=== PATIENT | female | born 1950 | race Caucasian/White ===

== ENCOUNTER 2020-12-09 18:08 | Observation (INO) | payer OTHER, MEDICARE, MEDICAID ==
[2020-12-09] MEDS ORDERED: LORazepam 0.5 MG Tab PO ONE (19:17)
[2020-12-09] MEDS ORDERED: Sodium Chloride 0.9% 10 ML Syringe FLUSH PRN (19:28)
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
[2020-12-09] MEDS ORDERED: LORazepam 2 MG/ML SDV IVPUSH ONE (20:19)
[2020-12-09] MEDS ORDERED: Lactated Ringers 1,000 ML IV ONE (22:16)
[2020-12-09] MEDS ORDERED: Iopamidol 612 MG/ML 150 ML Bottle IVPUSH ONE (22:48)
[2020-12-09] MEDS ORDERED: Sodium Chloride 0.9% 100 ML IV SCH (23:00)
[2020-12-09] MEDS ORDERED: Sodium Chloride 0.9% 10 ML Syringe FLUSH SCH (23:00)
[2020-12-09 23:01] LABS: CORONAVIRUS COVID-19 NAA NEGATIVE (NEGATIVE)
[2020-12-09] MEDS ORDERED: Ibuprofen 800 MG Tab PO ONE (23:01)
[2020-12-10] MEDS ORDERED: oxyCODONE 5 MG Tab PO PRN (00:16)
[2020-12-10] MEDS ORDERED: HYDROmorphone 1 MG/ML Syringe IVPUSH PRN (00:17)
[2020-12-10] MEDS ORDERED: Lactated Ringers 1,000 ML IV SCH (00:30)
[2020-12-10] MEDS: Ibuprofen 800 MG Tab PO SCH ×3 (04:04→16:37)
--- NOTE | 2020-12-10 08:23 | CT ---
CT cervical spine Technique: Multiple axial sections were obtained through the cervical spine from about C1 inferiorly to the top of T4. Reconstructed coronal and sagittal images were then obtained. Findings: Slight spondylolisthesis is noted at C3-4 by about 3 mm. Minimal spondylolisthesis is also noted at C4-5 which is less severe. Minimal spondylolisthesis is noted at C7-T1. Spondylolisthesis is due to degenerative apophyseal change which is noted throughout the cervical and upper thoracic spine. There is disc space narrowing being seen which is mild at C3-4 and C4-5. Disc space narrowing is moderate at C5-6 and more severe at C6-7. Mild disc space narrowing is seen within the thoracic spine. Degenerative change is noted between the dens and anterior arch of C1. Diffuse emphysematous changes are seen within both visualized lung apices. No acute fracture or acute subluxation is seen. Scoliosis is noted within the spine. Impression: 1. Diffuse degenerative change as noted above. 2. No definite acute abnormality is appreciated on CT study of the cervical spine. Diagnostic code #2 I agree with preliminary report from [facility], finalized on 12/09/20, 11:14 PM CDT, code 1
--- NOTE | 2020-12-10 08:30 | CT ---
Head CT Technique: Multiple axial sections through the brain were obtained. Intravenous contrast was not utilized. Reconstructed coronal and sagittal images were obtained. Comparison: No prior intracranial imaging is available. Findings: Ventricles along with basal cisterns and sulci with convexities appear within normal limits for the patient's age. No abnormal parenchymal densities are seen. No evidence of intracranial hemorrhage is seen. No midline shift or mass-effect is seen. Bone window settings were reviewed. Visualized mastoid sinuses and paranasal sinuses show nothing acute. No acute calvarial abnormality is appreciated. Impression: 1. Nothing acute is appreciated on noncontrast head CT study. Diagnostic code #1 I agree with preliminary report from [facility], finalized on 12/09/20, 11:01 PM CDT, code 1
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
== END 2020-12-10 16:54 | disposition home or self-care (01) ==
LOC: JD.ED 18:08 → JD.MS 23:05
PROVIDERS: ADMIT Surgery; ATTEND Surgery
DX: S22.41XA Multiple fractures of ribs, right side, initial encounter for closed fracture (principal); S30.1XXA Contusion of abdominal wall, initial encounter; F17.210 Nicotine dependence, cigarettes, uncomplicated; Z88.0 Allergy status to penicillin; Z79.899 Other long term (current) drug therapy; V47.5XXA Car driver injured in collision with fixed or stationary object in traffic accident, initial encounter; Z20.822 Contact with and (suspected) exposure to COVID-19
CPT/HCPCS: 0240U; 36415; 70450; 70450-26; 71260; 71260-26; 72125; 72125-26; 74177; 74177-26; 80053; 83880; 84484; 85025; 93005; 93010; 96374; 99284; 99285-25; A9270-GY; G0378; J2060; J7120; Q9967